=== PATIENT | female | born 1975 | race Two or more races ===

== ENCOUNTER 2018-05-21 11:42 | Emergency (ER) | payer OTHER ==
[2018-05-21 11:48] VITALS: BP 155/89; PULSE 104; TEMP 98.1; BMI 28.3
[2018-05-21] MEDS ORDERED: IBUPROFEN 400 MG TABLET (FP) PO ONE (12:07)
--- NOTE | 2018-05-21 12:14 | PDOC ---
History of Present Illness - General Chief Complaint: Pain Stated Complaint: LFT ARM AND BREAST PAIN Time Seen by Provider: 05/21/18 11:48 History Source: Patient Past History - Past Medical History Allergies/Adverse Reactions: Allergies Allergy/AdvReac Type Severity Reaction Status Date / Time No Known Allergies Allergy Verified 05/21/18 11:47 Home Medications: Ambulatory Orders NK [No Known Home Medication] 05/21/18 COPD: No Thyroid Disease: Yes - Immunization History Immunization Up to Date: Yes - Suicide/Smoking/Psychosocial Hx Smoking History: Never smoked Number of Cigarettes Smoked Daily: 2 Cigars Per Day: 0 Information on smoking cessation initiated: No Hx Alcohol Use: No Drug/Substance Use Hx: No Substance Use Type: None Review of Systems - Review of Systems Constitutional: No: Unexplained wgt Loss Respiratory: No: Shortness of Breath Cardiac (ROS): No: Chest Pain *Physical Exam - Vital Signs Last Vital Signs Temp Pulse Resp BP Pulse Ox 98.1 F 104 H 20 155/89 100 05/21/18 11:45 05/21/18 11:45 05/21/18 11:45 05/21/18 11:45 05/21/18 11:45 - Physical Exam General Appearance: Yes: Appropriately Dressed. No: Apparent Distress HEENT: positive: Normal Voice Neck: positive: Supple Respiratory/Chest: positive: Lungs Clear, Normal Breath Sounds, Other (breast symmetric w/ no masses, nipple/skin changes or lymphadenopathy, +minimal ttp to lateral L breast). negative: Respiratory Distress Cardiovascular: positive: Regular Rate, S1, S2 Integumentary: positive: Dry, Warm Neurologic: positive: Fully Oriented, Alert, Normal Mood/Affect Medical Decision Making - Medical Decision Making 05/21/18 12:13 42 yo F, no sig hx, here w/ recurrent breast pain. Patient reports having pain to lateral aspect of left breast since yesterday, worse with palpation. No masses or nipple discharge. Patient states her period is due in 2 days and that she does usually have bilateral breast pain with onset of her menses, but states current pain is a little worse. No recent trauma. No fever or chills. Denies any unexplained weight loss. No family history of breast cancer. Has never had a mammogram per patient. No CP otherwise and denies sob, palpitations , leg pain/swelling See exam L breast pain Recurrent w/ menses Menses due in 2 days Tachy at triage, normalized to 86 on my reassessment, + reproducible pain to lateral L breast, otherwise breast exam wnl -pain control -dc to f/u with PMD for screening mammogram *DC/Admit/Observation/Transfer Diagnosis at time of Disposition: Breast pain - Discharge Dispostion Disposition: HOME Condition at time of disposition: Good - Referrals - Patient Instructions Printed Discharge Instructions: DI for Breast Pain (Mastalgia) Additional Instructions: Your breast exam was normal today. Take motrin as needed for pain Please follow up with your PMD to schedule your mammogram - Post Discharge Activity
== END 2018-05-21 12:11 | disposition home or self-care (01) ==
LOC: JERFT 11:42
DX: N64.4 Mastodynia (principal)
CPT/HCPCS: 99281-25